=== PATIENT | male | born 1990 | race Caucasian/White ===

== ENCOUNTER → 2017-03-21 | Day surgery (SDC) | payer BC ==
[~2017-03-21] VITALS: Ht 193 cm; Wt 105.3 kg
[~2017-03-21] MED LIST: MULTI VITAMIN1 EACH PO; PROTONIX40 MG PO; TUMS REGULAR ST1 TAB PO; [UNRECOGNIZED DRUG - REMARK]
== END ==
LOC: GPOC 03-14 11:00 → GEND 09:06
PROC: 0DB88ZX Excision of Small Intestine, Via Natural or Artificial Opening Endoscopic, Diagnostic (ICD-10-PCS; principal; 2017-03-21)
PROC: 0DB58ZX Excision of Esophagus, Via Natural or Artificial Opening Endoscopic, Diagnostic (ICD-10-PCS; 2017-03-21)
PROC: 0DB68ZX Excision of Stomach, Via Natural or Artificial Opening Endoscopic, Diagnostic (ICD-10-PCS; 2017-03-21)
DX: K29.50 Unspecified chronic gastritis without bleeding (principal); K21.0 Gastro-esophageal reflux disease with esophagitis; K44.9 Diaphragmatic hernia without obstruction or gangrene; Z88.0 Allergy status to penicillin; Z79.899 Other long term (current) drug therapy
CPT/HCPCS: J2001; J7030